=== PATIENT | male | born 1970 | race Caucasian/White ===

== ENCOUNTER → 2016-05-20 | Outpatient (CLI) | payer BC, OTHER ==
[~2016-05-20] MED LIST: ACETAMINOPHEN325 M1 PO; AMBIEN 5 MG TABL5 M1 PO; ATIVAN1 MG PO; HYDROCODON-ACE1 EAC7 PO; KEFLEX500 MG PO; KLONOPIN1 MG; LOPRESSOR 50 MG50 M1 PO; MULTIVITAMIN; NICOTINE TRANSD21 M1; NOHOMEMEDICATIONS; NORCO 5-325 TA1 EACH PO; OMEPRAZOLE10 MG PO; PERCOCET 5-3251 EACH PO; PRILOSEC40 MG PO; TOPROL XL50 MG PO; ULTRAM 50MG TAB50 MG PO; ZOFRAN ODT4 MG PO; ZOLOFT50 MG PO; [UNRECOGNIZED DRUG - OTHER]
== END ==
LOC: CAT 10:53
DX: J84.10 Pulmonary fibrosis, unspecified (principal); J90 Pleural effusion, not elsewhere classified; R70.0 Elevated erythrocyte sedimentation rate; R16.1 Splenomegaly, not elsewhere classified

== ENCOUNTER 2016-11-22 18:47 | Emergency (ER) | payer BC, OTHER ==
[~2016-11-22] VITALS: Ht 180.3 cm; Wt 99.8 kg
--- NOTE | ~2016-11-22 | EKG ---
[address] [address] ELECTROCARDIOGRAM REPORT Name: CALI RUGGIERO Room #: DEP Jer#: [id number] Admission: 11/22/16 Attend Phys: Discharge: 11/22/16 Date of : 72 Report #: [id number] THIS REPORT FOR: //name// [facility] ED Test Date: 2016-11-22 Test Time: 19:17:57 Pat Name: CALI RUGGIERO Department: Room: Gender: M [employer] Executive: [id number] : 1970 Requested By: Cindy Carey Order Number: [id number] MD: Edwar Gu Measurements Intervals [place] Rate: 62 P: 31 OR: 155 QRS: 17 QRSD: 117 T: 38 QT: 409 QTc: 416 Interpretive Statements Sinus rhythm Nonspecific intraventricular conduction delay No previous ECG available for comparison Electronically Signed On 11-22-2016 22:12:14 CDT by Edwar Gu [email or web address] <ELECTRONICALLY SIGNED> By: Edwar Gu MD 11/22/16 2212 16 16 Edwar Gu MD /CHRISTINA
[2016-11-22 19:13] LABS: ABSOLUTE NEUTROPHILS 11.1 thou/uL (1.4-8.2); BASOPHILS 0.9 % (0.0-2.0); EOSINOPHILS 1.4 % (0.0-3.0); HEMATOCRIT 49.3 % (42.0-52.0); HEMOGLOBIN 16.9 gm/dL (14.0-18.0); LYMPHOCYTES 19.9 % (24.0-44.0); MCH 31.3 pg (26.0-34.0); MCHC 34.2 g/dL (28.0-37.0); MCV 91.5 fL (80.0-100.0); MONOCYTES 5.7 % (1.0-8.0); PLATELET COUNT 211 thou/uL (150-400); POLYS 72.1 % (36.0-66.0); RDW 13.7 % (10.5-14.5); WBC 15.4 thou/uL (4.0-11.0)
[2016-11-22] MEDS ORDERED: PRAZOSIN HCL5 MG PO (19:13)
[2016-11-22] MEDS ORDERED: ATORVASTATIN CA40 MG PO (19:13)
[2016-11-22] MEDS ORDERED: BUPROPION HCL200 MG PO (19:14)
[2016-11-22 19:22] LABS: MANUAL DIFF NO
[2016-11-22 19:43] LABS: ANION GAP 11 mmol/L (7-16); BUN 21 mg/dL (7-18); CHLORIDE 104 mmol/L (98-107); CO2 25 mmol/L (21-32); CREATININE 1.3 mg/dL (0.7-1.3); GLUCOSE 148 mg/dL (74-106); POTASSIUM 3.3 mmol/L (3.5-5.1); SODIUM 140 mmol/L (136-145)
[2016-11-22 19:50] LABS: ALBUMIN 4.2 g/dL (3.4-5.0); ALKALINE PHOSPHATASE 54 U/L (46-116); DIRECT BILIRUBIN 0.2 mg/dL (<0.1-0.3); SGOT 25 U/L (15-37); SGPT 52 U/L (30-65); TOTAL BILIRUBIN 0.8 mg/dL (<0.1-1.0); TOTAL PROTEIN 7.4 g/dL (6.4-8.2); TROPONIN-I < 0.04 ng/mL (<0.04-0.07)
[2016-11-22] MEDS ORDERED: ZOFRAN ODT4 MG PO (21:34)
[2016-11-22] MEDS ORDERED: PERCOCET 7.5-31 EACH PO (21:34)
[2016-11-22] MEDS ORDERED: FENTANYL1 EAC4 TD (21:34)
[2016-11-22 21:38] VITALS: BP 157/102
== END 2016-11-22 21:53 | disposition home or self-care (01) ==
LOC: ER 18:47
PROVIDERS: Emergency Medicine
DX: K85.90 Acute pancreatitis without necrosis or infection, unspecified (principal); I10 Essential (primary) hypertension

== ENCOUNTER → 2017-01-03 | Outpatient (CLI) | payer BC, OTHER ==
[~2017-01-03] MED LIST changes: +ATORVASTATIN CA40 MG PO; +BUPROPION HCL200 MG PO; +FENTANYL1 EAC4 TD; +PERCOCET 7.5-31 EACH PO; +PRAZOSIN HCL5 MG PO
== END ==
LOC: RAD 08:53
DX: M25.571 Pain in right ankle and joints of right foot (principal)

== ENCOUNTER → 2017-04-28 | Outpatient (CLI) | payer BC, OTHER ==
[~2017-04-28] VITALS: Ht 180.3 cm; Wt 96.0 kg
[~2017-04-28] MED LIST changes: +CLONAZEPAM 1 MG1 M1 PO; +CO Q-10100 MG PO; +CYMBALTA30 MG PO; +FLEXERIL PO; +LEVSIN-SL0.125 MG SUBLING; +MOBIC15 MG PO; +NABUMETONE 750750 M1 PO; +OMEPRAZOLE40 MG PO; +OXCARBAZEPINE600 MG PO; +PENTOXIFYLLINE400 MG PO; +RESTORIL30 MG PO; +SERTRALINE HCL100 MG PO; +SINGULAIR 10 MG10 M1 PO; +VENTOLIN HFA 1818 GM INH; +ZANAFLEX4 MG PO; +ZOLPIDEM TARTRA10 MG PO
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
[2017-04-28 09:57] VITALS: BP 104/77
== END ==
LOC: PAIN 06:56
DX: M54.89 Other dorsalgia (principal)

== ENCOUNTER 2017-06-28 10:51 | Emergency (ER) | payer BC, OTHER ==
[~2017-06-28] VITALS: Ht 180.3 cm; Wt 97.5 kg
[2017-06-28 11:36] LABS: EOSINOPHILS 1.1 % (0.0-3.0); HEMATOCRIT 42.5 % (42.0-52.0); HEMOGLOBIN 14.8 gm/dL (14.0-18.0); LYMPHOCYTES 30.8 % (24.0-44.0); MCH 31.3 pg (26.0-34.0); MCHC 34.7 g/dL (28.0-37.0); MCV 90.1 fL (80.0-100.0); MONOCYTES 7.4 % (1.0-8.0); PLATELET COUNT 151 thou/uL (150-400); POLYS 59.7 % (36.0-66.0); RBC 4.72 mil/uL (4.50-6.00); RDW 14.2 % (10.5-14.5); WBC 10.1 thou/uL (4.0-11.0)
[2017-06-28 11:39] LABS: URINE BILIRUBIN 1+ (Negative); URINE BLOOD NEGATIVE (Negative); URINE CLARITY CLEAR; URINE COLOR YELLOW; URINE GLUCOSE-RANDOM* NEGATIVE (Negative); URINE KETONES 1+ (Negative); URINE LEUKOCYTES-REFLEX NEGATIVE (Negative); URINE NITRITE-REFLEX NEGATIVE (Negative); URINE PROTEIN (DIPSTICK) TRACE (Negative); URINE SPECIFIC GRAVITY >= 1.030 (1.005-1.035); URINE UROBILINOGEN 0.2 E.U./dl (0.2-1.0)
[2017-06-28 11:41] LABS: ICTOTEST (BILI CONFIRMATORY) Negative (Negative)
[2017-06-28 11:47] LABS: CALCIUM 8.9 mg/dL (8.5-10.1); CREATININE 1.1 mg/dL (0.7-1.3); POTASSIUM 4.3 mmol/L (3.5-5.1)
[2017-06-28 11:57] LABS: ALBUMIN 3.8 g/dL (3.4-5.0); TOTAL BILIRUBIN 0.3 mg/dL (<0.1-1.0); TOTAL PROTEIN 6.3 g/dL (6.4-8.2)
[2017-06-28] MEDS ORDERED: HYDROCODONE-AP1 EAC6 PO (12:30)
[2017-06-28 12:57] VITALS: BP 132/89
[2017-06-29] MEDS ORDERED: CYMBALTA30 MG PO (11:24)
[2017-06-29] MEDS ORDERED: NABUMETONE 750750 M1 PO (11:24)
[2017-06-29] MEDS ORDERED: PERCOCET 7.5-31 EACH PO ×2 (11:24→11:26)
[2017-06-29] MEDS ORDERED: ZANAFLEX4 MG PO (11:24)
[2017-07-07] MEDS ORDERED: PERCOCET 7.5-31 EACH PO (15:04)
[2017-07-07] MEDS ORDERED: ZANAFLEX4 MG PO (15:04)
== END 2017-06-28 13:09 | disposition home or self-care (01) ==
LOC: ER 10:51
PROVIDERS: Emergency Medicine
DX: S32.018A Other fracture of first lumbar vertebra, initial encounter for closed fracture (principal); S32.028A Other fracture of second lumbar vertebra, initial encounter for closed fracture; W01.0XXA Fall on same level from slipping, tripping and stumbling without subsequent striking against object, initial encounter; Y93.89 Activity, other specified; Y92.89 Other specified places as the place of occurrence of the external cause; Y99.8 Other external cause status

== ENCOUNTER → 2017-06-29 | Outpatient (CLI) | payer BC, OTHER ==
[~2017-06-29] VITALS: Ht 180.3 cm; Wt 97.5 kg
[~2017-06-29] MED LIST changes: +HYDROCODONE-AP1 EAC6 PO
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
[2017-06-29 10:55] VITALS: BP 139/103
== END ==
LOC: PAIN 07:10
DX: M47.816 Spondylosis without myelopathy or radiculopathy, lumbar region (principal); M53.3 Sacrococcygeal disorders, not elsewhere classified; M54.5 Low back pain; K85.90 Acute pancreatitis without necrosis or infection, unspecified; Z79.1 Long term (current) use of non-steroidal anti-inflammatories (NSAID); Z79.899 Other long term (current) drug therapy; Z87.81 Personal history of (healed) traumatic fracture; Z79.891 Long term (current) use of opiate analgesic; I10 Essential (primary) hypertension; F17.200 Nicotine dependence, unspecified, uncomplicated

== ENCOUNTER → 2017-07-07 | Outpatient (CLI) | payer BC, OTHER ==
[~2017-07-07] VITALS: Ht 180.3 cm; Wt 92.1 kg
--- NOTE | ~2017-07-07 | HPC ---
[facility] [place] [address] [place] [address] PAIN MANAGEMENT CONSULTATION Name: CALI RUGGIERO Room #: REG [facility].#: [id number] Admission: 07/07/17 Attend Phys: Francis Baxter DO Discharge: Date of : 72 Report #: [id number] THIS REPORT FOR: //name// CC: Hernan Baxter DATE OF SERVICE: 07/07/2017 The patient is a 47-year-old gentleman, prior seen in the pain clinic 06/29/2017. He had fallen last week, striking his low back, suffering left transverse process fractures at L1-L2. I had started the patient on a short course of Percocet 7.5/325; continued Cymbalta, trazodone and Relafen. Did an epidural injection to help with acute inflammatory pain. Returns to pain clinic today noting pain remains problematic, rates it a 9 on VAS. Pain is very exclusively located in the left upper lumbar area, exacerbated with any and all movement. Fortunately, lower extremity strength is preserved. Straight leg raise is negative. No significant radicular symptoms are noted. No myelopathic symptoms are noted. ASSESSMENT: Symptomatic axial back pain status post trauma with left L1 and L2 transverse process fractures. RECOMMENDATION: Long discussion with the patient and his significant other today. We have elected to renew Percocet 7.5/325, limit 120 tablets. Directions 1 q.4h. for 10 days, 1 q.6h. for 10 days and then wean as able. Continue nabumetone 750 b.i.d. Continue tizanidine 4 mg 1 to 2 at bedtime. I have taken the liberty of renewing the patient's work release for another week. I talked about returning to work on 07/17/2017. Cautioned about range of motion and lifting greater than about 5 pounds. I will be happy to see the patient on an as needed basis. Hopefully, the transverse process fractures will continue to heel though we did point out that this will be a long and painful process. We plan on weaning opiates hopefully over the next 2-4 weeks. <ELECTRONICALLY SIGNED> By: Francis Baxter DO 07/10/17 0747 1601 1913 Francis Baxter DO /nt
[2017-07-07 14:34] VITALS: BP 124/86
== END ==
LOC: PAIN 07:10
DX: M54.5 Low back pain (principal)